=== PATIENT | male | born 1935 | race Caucasian/White ===

== ENCOUNTER 2016-11-16 11:52 | Emergency (ER) | payer MEDICARE, OTHER ==
[2016-11-16 12:24] LABS: AUTOMATED BASOPHIL 0.7 % (0-2); AUTOMATED EOSINOPHIL 3.3 % (0-5); AUTOMATED LYMPH 11.2 % (17-44); AUTOMATED MONOCYTE 7.2 % (3-10); AUTOMATED NEUTROPHIL 77.6 % (45-76); MPV 8.2 fL (7.4-10.4)
[2016-11-16 12:33] VITALS: PULSE 60; TEMP 97.8; BMI 29.8
[2016-11-16 12:37] LABS: ABG Draw Site Right Radial; ABG Draw Tech SPEMA; ALLEN'S TEST PASS; BEb 3.5 (+/- 2)
[2016-11-16 12:42] LABS: BLOOD UREA NITROGEN 34 MG/DL (9-20); CALCIUM 9.1 MG/DL (8.4-10.2); CALCULATED OSMOLALITY 282 MOs/Kg (270-290); CHLORIDE 102 mEq/L (98-107); CPK TOTAL WITH POSSIBLE MB 53 IU/L (55-170); GLUCOSE 116 MG/DL (70-99); PARTIAL THROMB. TIME 27.1 SEC (22-35); SODIUM LEVEL 142 mEq/L (137-146); TOTAL PROTEIN 7.1 G/DL (6.3-8.2)
--- NOTE | 2016-11-16 13:05 | EDPRACDOC ---
- General Information Chief Complaint: Generalized Weakness Stated Complaint: SYNCOPE Time Seen by Provider: 11/16/16 12:12 Information Source: Patient Mode Of Arrival: Ambulance Home Medications: Home Medications Allopurinol [Zyloprim] 300 mg PO DAILY 11/16/16 Amiodarone HCl [Pacerone] 200 mg PO DAILY 11/16/16 Aspirin [Aspirin EC] 81 mg PO DAILY 11/16/16 Atorvastatin Calcium [Lipitor] 20 mg PO DAILY 11/16/16 Donepezil HCl [Aricept] 10 mg PO DAILY 11/16/16 Furosemide [Lasix] 20 mg PO DAILY 11/16/16 Levothyroxine [Synthroid, Levoxyl] 100 mcg PO DAILY 11/16/16 Losartan Potassium [Cozaar] 25 mg PO BID 11/16/16 Memantine HCl [Namenda] 10 mg PO BID 11/16/16 Omeprazole [Prilosec] 20 mg PO DAILY 11/16/16 Potassium Chloride [Klor-Con M20] 20 meq PO BID 11/16/16 Allergies/Adverse Reactions: Allergies Allergy/AdvReac Type Severity Reaction Status Date / Time Penicillins Allergy Unknown Verified 11/16/16 12:33 - History of Present 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 HAS HISTORY OF SAME RECENTLY AND WAS FOUND TO HAVE SYMPTOMATIC BRADYCARDIA. AFTER THIS EPISODE A FEW WEEKS AGO HE WAS SEEN IN ER AND HAD A PACEMAKER IMPLANTED. 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 negative: Chest Pain Gastrointestinal: negative: Pain, Vomiting - Physical Exam Constitutional: Alert, Confused Oriented to: Person, Place Last recorded Vital Signs: Last Vital Signs Temp 97.8 F 11/16/16 11:52 Pulse 60 11/16/16 11:52 Resp 16 11/16/16 11:52 BP 138/68 11/16/16 11:52 Pulse Ox 93 11/16/16 11:52 Oxygen Pulse Oxygen Saturation 93 O2 Device Room Air Oxygen Flow Rate Fraction of Inspired Oxygen ( FIO2) - HEENT Head: negative: Deformity, Laceration Eye Exam: negative: Conjunctival Injection, Pale Conjunctiva Oropharynx: negative: Membranes Dry Nose: negative: Congestion, Discharge Neck: negative: Limited ROM - Respiratory/Cardiovascular Respiratory: Normal - CTA. negative: Accessory Muscle Use, Diminished, Tachypnea Cardiovascular: negative: Bradycardia, Tachycardia, Irregular - GI Auscultation: Normal Palpation: Normal Tenderness: Non tender - Musculoskeletal Extremities: Radial Pulse (PALPABLE) - Integumentary Skin: Warm, Dry. negative: Rash - Neurologic Memory Impaired: Long-term. negative: Short-term Motor Function: Normal Mood Description: Flat Thought: Coherent - Results 11/16/16 12:15 11/16/16 12:15 WBC 9.3 xk/uL (3.8-10.8) 11/16/16 12:15 RBC 4.38 xM/uL (4.70-6.10) L 11/16/16 12:15 Hgb 13.9 g/dL (14.0-18.0) L 11/16/16 12:15 Hct 40.9 % (42-52) L 11/16/16 12:15 MCV 93 fL (80-94) 11/16/16 12:15 MCH 31.6 pg (27-32) 11/16/16 12:15 MCHC 33.8 g/dl (33-36) 11/16/16 12:15 RDW 14.2 % (11.5-14.5) 11/16/16 12:15 Plt Count 196 xk/uL (130-400) 11/16/16 12:15 MPV 8.2 fL (7.4-10.4) 11/16/16 12:15 Neut % (Auto) 77.6 % (45-76) H 11/16/16 12:15 Lymph % (Auto) 11.2 % (17-44) L 11/16/16 12:15 [place] % (Auto) 7.2 % (3-10) 11/16/16 12:15 Eos % (Auto) 3.3 % (0-5) 11/16/16 12:15 Baso % (Auto) 0.7 % (0-2) 11/16/16 12:15 Absolute Neuts (auto) 7.16 xk/uL (1.7-8.2) 11/16/16 12:15 Absolute Lymphs (auto) 1.02 xk/uL (0.65-4.75) 11/16/16 12:15 PT 10.4 SEC (9.2-11.2) 11/16/16 12:15 INR 1.0 11/16/16 12:15 APTT 27.1 SEC (22-35) 11/16/16 12:15 D-Dimer Quant (PE/DVT) Cancelled 11/16/16 12:15 Puncture Site Right radial 11/16/16 12:30 pH 7.450 pH UNITS (7.35-7.45) 11/16/16 12:30 pCO2 40.0 mmHg (35-45) 11/16/16 12:30 pO2 83.0 mmHg (80-100) 11/16/16 12:30 HCO3 27.8 MMOL/L (22-26) H 11/16/16 12:30 Total CO2 29.0 MMOL/L (23-27) H 11/16/16 12:30 Base Excess 3.5 (+/- 2) H 11/16/16 12:30 FiO2 % 21 11/16/16 12:30 Specimen Drawn By Spema 11/16/16 12:30 Sodium 142 mEq/L (137-146) 11/16/16 12:15 Potassium 4.1 mEq/L (3.5-5.1) 11/16/16 12:15 Chloride 102 mEq/L (98-107) 11/16/16 12:15 Carbon Dioxide 29 mMOL/L (22-33) 11/16/16 12:15 Anion Gap 15 mEq/L (8-16) 11/16/16 12:15 BUN 34 MG/DL (9-20) H 11/16/16 12:15 Creatinine 1.40 MG/DL (0.66-1.25) H 11/16/16 12:15 Estimated GFR (MDRD) 49 mL/min (>=60) L 11/16/16 12:15 Glucose 116 MG/DL (70-99) H 11/16/16 12:15 Calculated Osmolality 282 MOs/Kg (270-290) 11/16/16 12:15 Calcium 9.1 MG/DL (8.4-10.2) 11/16/16 12:15 Total Bilirubin 0.9 MG/DL (0.2-1.3) 11/16/16 12:15 AST 34 IU/L (17-59) 11/16/16 12:15 ALT 34 IU/L (21-72) 11/16/16 12:15 Alkaline Phosphatase 90 IU/L (50-160) 11/16/16 12:15 Creatine Kinase 53 IU/L (55-170) L 11/16/16 12:15 Troponin I 0.02 ng/mL (<.04) 11/16/16 12:15 Fwa-B-Xvookzkqdlg Pept 1410 pg/mL (0-1800) 11/16/16 12:15 Total Protein 7.1 G/DL (6.3-8.2) 11/16/16 12:15 Albumin 4.0 G/DL (3.5-5.0) 11/16/16 12:15 Lab Results 11/16/16 11/16/16 11/16/16 12:30 12:15 12:15 WBC RBC Hgb Hct MCV MCH MCHC RDW Plt Count MPV Neut % (Auto) Lymph % (Auto) [place] % (Auto) Eos % (Auto) Baso % (Auto) Absolute Neuts (auto) Absolute Lymphs (auto) PT 10.4 INR 1.0 APTT 27.1 D-Dimer Quant (PE/DVT) Cancelled Puncture Site Right radial pH 7.450 pCO2 40.0 pO2 83.0 HCO3 27.8 H Total CO2 29.0 H Base Excess 3.5 H FiO2 % 21 Specimen Drawn By Spema Sodium Potassium Chloride Carbon Dioxide Anion Gap BUN Creatinine Estimated GFR (MDRD) Glucose Calculated Osmolality Calcium Total Bilirubin AST ALT Alkaline Phosphatase Creatine Kinase Troponin I Kwa-W-Fimmechnnsx Pept Total Protein Albumin 11/16/16 11/16/16 12:15 12:15 WBC 9.3 RBC 4.38 L Hgb 13.9 L Hct 40.9 L MCV 93 MCH 31.6 MCHC 33.8 RDW 14.2 Plt Count 196 MPV 8.2 Neut % (Auto) 77.6 H Lymph % (Auto) 11.2 L [place] % (Auto) 7.2 Eos % (Auto) 3.3 Baso % (Auto) 0.7 Absolute Neuts (auto) 7.16 Absolute Lymphs (auto) 1.02 PT INR APTT D-Dimer Quant (PE/DVT) Puncture Site pH pCO2 pO2 HCO3 Total CO2 Base Excess FiO2 % Specimen Drawn By Sodium 142 Potassium 4.1 Chloride 102 Carbon Dioxide 29 Anion Gap 15 BUN 34 H Creatinine 1.40 H Estimated GFR (MDRD) 49 L Glucose 116 H Calculated Osmolality 282 Calcium 9.1 Total Bilirubin 0.9 AST 34 ALT 34 Alkaline Phosphatase 90 Creatine Kinase 53 L Troponin I 0.02 Aci-W-Bptsviqwfuh Pept 1410 Total Protein 7.1 Albumin 4.0 - EKG EKG #1 EKG Time: 12:17 -: Yes EKG interpreted by me Rate: bpm: 600 Rhythm: Paced Decision Time to Discharge: 14:30 - Departure Yes I personally saw and evaluated the patient. Disposition: Home Condition: Stable Final Diagnosis: Syncope Instructions: Syncope (ED) Education/Counseling Given To: Patient, Family Member Education/Counseling Given Regarding: Diagnosis, Treatment, Prognosis, Follow Up Referrals: Erik Bruce MD [Primary Care Provider] - As Needed
--- NOTE | 2016-11-16 13:40 | DIRPT ---
CLINICAL DATA: Syncopal episode, hypotension EXAM: PORTABLE CHEST 1 VIEW COMPARISON: 07/30/2008 FINDINGS: There is mild right basilar atelectasis. There is no focal parenchymal opacity. There is no pleural effusion or pneumothorax. The heart and mediastinal contours are unremarkable. There is a dual lead cardiac pacemaker. The osseous structures are unremarkable. IMPRESSION: No active disease. Electronically Signed By: Maria Alejandra Avalos On: 11/16/2016 13:38
--- NOTE | 2016-11-16 13:57 | DIRPT ---
CLINICAL DATA: Syncope with loss of consciousness. Confusion. EXAM: CT HEAD WITHOUT CONTRAST TECHNIQUE: Contiguous axial images were obtained from the base of the skull through the vertex without intravenous contrast. COMPARISON: Head CT July 30, 2008; brain MRI July 31, 2008 FINDINGS: There is moderate diffuse atrophy. There is no intracranial mass, hemorrhage, extra-axial fluid collection, or midline shift. There is fairly extensive although patchy small vessel disease throughout the centra semiovale bilaterally. There is a small lacunar infarct in each thalamus. There is a prior small infarct in the left stephanie -midbrain junction medially. There is a prior focal infarct in the anterior superior left cerebellum with a smaller infarct in the posterior mid left cerebellar hemisphere. There is a tiny lacunar infarct in the mid right cerebellum, better seen on prior MR. There are no new chou-white compartment lesions. No acute infarct is apparent on this study. The bony calvarium appears intact. The mastoid air cells are clear. There are no intraorbital lesions in the visualized intraorbital regions. IMPRESSION: Atrophy with small vessel disease and several prior infarcts, stable from prior studies. No acute infarct evident. No hemorrhage or mass effect. Electronically Signed By: Jose Rivero III, M.D. On: 11/16/2016 13:54
[2016-11-16 14:52] VITALS: BP 122/72
== END 2016-11-16 15:05 | disposition home or self-care (01) ==
LOC: ED 11:52
DX: R55 Syncope and collapse (principal)
CPT/HCPCS: 36415; 36600; 70450; 71010; 80053; 82550; 82803; 83880; 84484; 85025; 85610; 85730; 93005; 99282